=== PATIENT | female | born 1980 | race Caucasian/White ===

== ENCOUNTER 2024-03-21 04:54 | Emergency (ER) | payer BC, SELFPAY ==
[2024-03-21 04:59] VITALS: BP 147/94; PULSE 84; RESP 16; TEMP 36.5; O2SAT 97; BMI 43.9
--- NOTE | 2024-03-21 05:14 | ED.GENADULT ---
HPI - General Adult General Chief complaint: Abdominal Pain Stated complaint: abdominal pain, wraps to back Time Seen by Provider: 03/21/24 05:14 History of Present Illness HPI narrative: awoke around 0020 with severe pain in R ribs that wraps around to back, states it felt simiar to episodes of renal cholic shes had in the past. states she was told she has a kidney stone and is unsure if this is the cause. took 1 oxycodone that initially brought the pain down and she tried to ignore it but now the pain has returned. 43-year-old woman presenting to the emergency department with concern of sharp, pressure, severe pain in the right flank area. She demonstrates also that has had pain then into the epigastrium across the top of her abdomen but it is really the back pain that is that issue. Similar to ?renal colic?. Was treated 6 weeks ago for a 4.8 mm calculus in the right mid ureter. This seemed to have resolved. She did strain her urine for a while in never caught anything. This pain is similar. Reviewing CT imaging report from outside record I do not see mention of stone burden. I am unable to view images myself. Her pain was described similarly as wrapping around to the anterior abdomen. Otherwise denies food intolerance is other than some occasional heartburn. No known gallbladder disease. She did have 1 remaining oxycodone which she took prior to presenting to the emergency department. Pain has escalated however again. Related Data Home Medications ?Medication ?Instructions ?Recorded ?Confirmed bupropion HCl 300 mg 24 hr tablet, 300 mg PO DAILY 03/21/24 03/21/24 extended release (Wellbutrin XL) levothyroxine 200 mcg capsule 200 mcg PO DAILY 03/21/24 03/21/24 levothyroxine 200 mcg tablet 200 mcg PO DAILY 03/21/24 03/21/24 (Euthyrox) omeprazole 40 mg capsule,delayed 40 mg PO DAILY 03/21/24 03/21/24 release trazodone 100 mg tablet 50 mg PO QHS PRN 03/21/24 03/21/24 venlafaxine 75 mg capsule,extended 75 mg PO DAILY 03/21/24 03/21/24 release 24 hr (Effexor XR) Previous Rx's ?Medication ?Instructions ?Recorded oxycodone-acetaminophen 5 mg-325 1 - 2 tab PO Q4-6H PRN pain #10 03/21/24 mg tablet (Endocet) tabs tamsulosin 0.4 mg capsule (Flomax) 0.4 mg PO DAILY For ureteral spasm 03/21/24 #15 caps Allergies Allergy/AdvReac Type Severity Reaction Status Date / Time Sulfa (Sulfonamide Allergy Verified 03/21/24 05:03 Antibiotics) Review of Systems Status of ROS: Reports: 6 or more systems reviewed and unremarkable except as noted in History and below PFSH PFS Medical History Kidney stone ?N20.0 - Calculus of kidney (ICD-10) NOLAN (generalized anxiety disorder) ?F41.1 - Generalized anxiety disorder (ICD-10) Major depressive disorder ?F32.9 - Major depressive disorder, single episode, unspecified (ICD-10) Prediabetes ?R73.03 - Prediabetes (ICD-10) GERD (gastroesophageal reflux disease) ?K21.9 - Gastro-esophageal reflux disease without esophagitis (ICD-10) Hypothyroidism ?E03.9 - Hypothyroidism, unspecified (ICD-10) Social History Do you use any of these nicotine containing products: None How often do you have a drink containing alcohol: never AUDIT-C Alcohol total score: 0 Non-prescribed substance use: denies use Exam Narrative: Exam Narrative: Tall. Pleasant. Seems uncomfortable. Converses quickly, easily. Skin is warm and dry. Extremities are well perfused. Heart in regular rate and rhythm. Abdomen is overweight. Soft. No peritoneal signs. She is tender in the right upper quadrant into the epigastrium but also in the right flank. No Tovar's. Const: Vital Signs, click to edit/add: Vital Signs - 24 hr 03/21/24 04:59 Temperature 97.7 F Pulse Rate [Pulse Oximeter] 84 Respiratory Rate 16 Blood Pressure [Ri ght Upper Arm] 147/94 H Pulse Oximetry 97 Oxygen Delivery Me thod Room Air Documenting provider has reviewed patient's vital signs: yes Course Vital Signs Vital signs: Initial Vital Signs Temperature 97.7 F 03/21/24 04:59 Temperature Source Temporal Artery Scan 03/21/24 04:59 Pulse Rate 84 03/21/24 04:59 Respiratory Rate 16 03/21/24 04:59 Blood Pressure 147/94 H 03/21/24 04:59 Blood Pressure Mean 111 H 03/21/24 04:59 Blood Pressure Position Supine 03/21/24 04:59 Pulse Oximetry 97 03/21/24 04:59 Oxygen Delivery Method Room Air 03/21/24 04:59 Vital Signs Temperature 97.7 F 03/21/24 04:59 Pulse Rate 84 03/21/24 04:59 Respiratory Rate 16 03/21/24 04:59 Blood Pressure 147/94 H 03/21/24 04:59 Pulse Oximetry 97 03/21/24 04:59 Oxygen Delivery Method Room Air 03/21/24 04:59 Temperature 97.7 F 03/21/24 04:59 Pulse Rate 84 03/21/24 04:59 Respiratory Rate 16 03/21/24 04:59 Blood Pressure 147/94 H 03/21/24 04:59 Pulse Oximetry 97 03/21/24 04:59 Oxygen Delivery Method Room Air 03/21/24 04:59 Medications Administered Medications: Discontinued Medications Generic Name Dose Route Start Last Admin Trade Name Freq PRN Reason Stop Dose Admin Sodium Chloride 500 mls @ 1,000 mls/hr 03/21/24 05:21 03/21/24 06:05 0.9 % Sodium Chloride 500 Ml IV 03/21/24 05:50 Infused .Q30M ONE Infusion Ketorolac Tromethamine 30 mg 03/21/24 05:21 03/21/24 05:30 Ketorolac 30 Mg/Ml Inj IVP 03/21/24 05:22 30 mg ONCE ONE Administration Morphine Sulfate 4 mg 03/21/24 05:22 03/21/24 06:01 Morphine 4 Mg/Ml Inj IVP 4 mg ONCE PRN Administration pain Tamsulosin HCl 0.4 mg 03/21/24 07:22 03/21/24 07:27 Tamsulosin Hcl 0.4 Mg Capsule PO 03/21/24 07:23 0.4 mg ONCE ONE Administration Medical Decision Making MDM Narrative Medical decision making narrative: History would suggest that this is ureteral colic. I would look for indication infection or urine. Check labs also for evidence biliary disease. May need imaging related to the latter. Unable to determine stone burden but likely there was something left in the kidney. IV was initiated. Received normal saline, ketorolac. Initially declining morphine but then pain escalated and she did receive this. Pain markedly improved. Later also given a dose of tamsulosin. Labs are overall reassuring. Trace blood in the urine. No indication of biliary involvement at this time. Second urination here in the emergency department still felt like she had to go. This is similar to prior stone. We mutually decided to defer imaging. I think is acceptable to monitor closely. See patient discharge plan for further discussion Focus on hydration with water. Would strain your urine over this next week. Take Flomax until no longer having symptoms of pain. Be seen sooner for marked increase in persistent pain, repeated vomiting, associated fever. Be seen also for symptoms lasting longer than 5 days. Giving you 4 tabs of Percocet for home and will be sending in a prescription as well. Also prescription for Flomax. Can take up to 800 mg of ibuprofen every 6 hours if needed. Medical Records Medical records reviewed: Yes I reviewed the patient's medical records Lab Data Lab results reviewed: Yes I reviewed the patient's lab results Labs: Lab Results 03/21/24 03/21/24 Range/Units 05:08 05:13 WBC 8.59 (4.50-11.00) K/uL RBC 4.61 (4.00-5.20) m/uL Hgb 12.3 (12.0-16.0) gm/dL Hct 38.4 (33.0-51.0) % MCV 83 (80-100) fL MCH 27 (26-34) pg MCHC 32 (32-36) gm/dL RDW Coeff of Zoie 14.6 (11.5-15.5) % Plt Count 298 (140-440) K/uL Neut % (Auto) 64.7 (42.0-72.0) % Lymph % (Auto) 26.8 (20-44) % [place] % (Auto) 5.1 (0.0-11.0) % Eos % (Auto) 3.1 (0.0-7.0) % Baso % (Auto) 0.2 (0.0-3.0) % Neut # (Auto) 5.55 (1.7-7.0) K/uL Lymph # (Auto) 2.30 (0.90-2.90) K/uL [place] # (Auto) 0.40 (0.00-0.90) K/UL Eos # (Auto) 0.27 (0.00-0.50) K/uL Baso # (Auto) 0.02 (0.00-0.30) K/uL Abs Immat Gran (auto) 0.01 (0.00-0.30) K/uL Imm/Tot Granulo (auto) 0.1 % Sodium 139 (135-149) mmol/L Potassium 4.5 (3.6-5.1) mmol/L Chloride 104 (96-114) mmol/L Carbon Dioxide 28 (20-32) mmol/L Anion Gap 7 (7-15) mEq/L BUN 23 (5-24) mg/dL Creatinine 1.0 (0.5-1.5) mg/dL Estimated Creat Clear 69.09 Estimated GFR 71 ml/min Glucose 138 H (60-115) mg/dL Calcium 8.6 (8.4-10.6) mg/dL Total Bilirubin 0.5 (0.1-1.5) mg/dL Direct Bilirubin 0.4 (0.0-0.5) mg/dL AST 32 (12-35) U/L ALT 17 (4-35) U/L Alkaline Phosphatase 83 (40-150) U/L Troponin I < 0.01 L (0.01-0.04) ng/mL C-Reactive Protein 0.6 (0.5-1.0) mg/dL Total Protein 7.7 (6.0-8.3) g/dL Albumin 4.3 (3.3-5.0) g/dL Urine Color Yellow (Yellow) Urine Appearance Clear (Clear) Urine pH 6.0 (5.0-8.5) Ur Specific [place] 1.020 (1.000-1.030) Urine Protein Negative (Negative) Urine Glucose (UA) Negative (Negative) Urine Ketones Negative (Negative) Urine Blood Negative (Negative) Urine Nitrite Negative (Negative) Urine Bilirubin Negative (Negative) Urine Urobilinogen 0.2 (0.2-1.0) Ur Leukocyte Esterase Negative (Negative) Urine RBC 2-5 A (0-2) Urine WBC 2-5 (0-5) Urine WBC Clumps Few A (None) Ur Squamous Epith Cells Few (None-Few) Urine Bacteria None (None) Discharge Plan Discharge Clinical Impression: Right flank pain, Hematuria Patient Disposition: Home, Self-Care Condition: Improved Additional Instructions: Focus on hydration with water. Would strain your urine over this next week. Take Flomax until no longer having symptoms of pain. Be seen sooner for marked increase in persistent pain, repeated vomiting, associated fever. Be seen also for symptoms lasting longer than 5 days. Giving you 4 tabs of Percocet for home and will be sending in a prescription as well. Also prescription for Flomax. Can take up to 800 mg of ibuprofen every 6 hours if needed. Prescriptions: New oxycodone-acetaminophen [Endocet] 5-325 mg tablet 1 - 2 tab PO Q4-6H PRN (Reason: pain) Qty: 10 0RF tamsulosin [Flomax] 0.4 mg capsule 0.4 mg PO DAILY Qty: 15 1RF No Action levothyroxine 200 mcg capsule 200 mcg PO DAILY trazodone 100 mg tablet 50 mg PO QHS PRN bupropion HCl [Wellbutrin XL] 300 mg tablet extended release 24 hr 300 mg PO DAILY levothyroxine [Euthyrox] 200 mcg tablet 200 mcg PO DAILY venlafaxine [Effexor XR] 75 mg capsule,extended release 24hr 75 mg PO DAILY omeprazole 40 mg capsule,delayed release(DR/EC) 40 mg PO DAILY Follow Up/Referrals: Deepali Ewing DO [Primary Care Provider] - Stand Alone Forms: [employer] Info Instructions
[2024-03-21] MEDS: 0.9 % SODIUM CHLORIDE 500 ML 500 ML 1000 ML IV (05:30)
[2024-03-21] MEDS: KETOROLAC 30 MG/ML inj IVP (05:30)
[2024-03-21 05:33] LABS: Basophils Absolute Auto 0.02 K/uL (0.00-0.30); Basophils Percent Auto 0.2 % (0.0-3.0); Eosinophils Absolute Auto 0.27 K/uL (0.00-0.50); Eosinophils Percent Auto 3.1 % (0.0-7.0); Hematocrit 38.4 % (33.0-51.0); Hemoglobin* 12.3 gm/dL (12.0-16.0); Immature Granulocytes Abs Auto 0.01 K/uL (0.00-0.30); Immature Granulocytes Pct Auto 0.1 %; Lymphocytes Percent Auto 26.8 % (20-44); Mean Corpuscular HGB Conc 32 gm/dL (32-36); Mean Corpuscular Hemoglobin 27 pg (26-34); Mean Corpuscular Volume 83 fL (80-100); Monocytes Percent Auto 5.1 % (0.0-11.0); Neutrophils Absolute Auto 5.55 K/uL (1.7-7.0); Neutrophils Percent Auto 64.7 % (42.0-72.0); Platelet Count* 298 K/uL (140-440); RDW Coefficient of Variation % 14.6 % (11.5-15.5); Red Blood Count 4.61 m/uL (4.00-5.20); White Blood Count* 8.59 K/uL (4.50-11.00)
[2024-03-21 05:34] LABS: Appearance Urine Clear (Clear); Bilirubin Urine Negative (Negative); Blood Urine Negative (Negative); Color Urine Yellow (Yellow); Glucose Urine Negative (Negative); Ketones Urine Negative (Negative); Leukocyte Esterase Urine Negative (Negative); Nitrite Urine Negative (Negative); Protein Urine Negative (Negative); Urobilinogen Urine 0.2 (0.2-1.0)
[2024-03-21 05:39] LABS: Slide Review Reflex No
[2024-03-21 05:45] LABS: Squamous Epithelial Cell Urine Few (None-Few); WBC Clumps Urine Few
[2024-03-21 05:46] LABS: Albumin* 4.3 g/dL (3.3-5.0); Chloride* 104 mmol/L (96-114)
[2024-03-21 05:47] LABS: Potassium* 4.5 mmol/L (3.6-5.1); Sodium* 139 mmol/L (135-149)
[2024-03-21 05:49] LABS: Alkaline Phosphatase* 83 U/L (40-150); Anion Gap 7 mEq/L (7-15); Aspartate Amino Transferase* 32 U/L (12-35); Bilirubin Direct* 0.4 mg/dL (0.0-0.5); Bilirubin Total* 0.5 mg/dL (0.1-1.5); Blood Urea Nitrogen* 23 mg/dL (5-24); Carbon Dioxide* 28 mmol/L (20-32); Est. Creatinine Clearance* 69.09; Estimated Glomerular Filt Rate 71 ml/min; Total Protein* 7.7 g/dL (6.0-8.3)
[2024-03-21 05:50] LABS: Alanine Aminotransferase* 17 U/L (4-35); Calcium* 8.6 mg/dL (8.4-10.6); Glucose* 138 mg/dL (60-115)
[2024-03-21 05:52] LABS: C Reactive Protein* 0.6 mg/dL (0.5-1.0)
[2024-03-21] MEDS: MORPHINE 4 MG/ML INJ IVP (06:01)
[2024-03-21 06:02] LABS: Troponin I* < 0.01 ng/mL (0.01-0.04)
[2024-03-21] MEDS: TAMSULOSIN HCL 0.4 MG CAPSULE PO (07:27)
== END 2024-03-21 08:17 | disposition home or self-care (01) ==
PROVIDERS: Emergency Provider Family Medicine; PCP Family Medicine
DX: R10.9 Unspecified abdominal pain (principal); R31.9 Hematuria, unspecified
CPT/HCPCS: 36415; 80048; 80076; 81001; 84484; 85025; 86140; 96374; 96375; 99283; 99284; A9270; J1885; J2270; J7030